=== PATIENT | male | born 1965 | race Caucasian/White ===

== ENCOUNTER 2020-03-05 20:36 | Emergency (ER) | payer BC ==
[2020-03-05 20:44] VITALS: BP 150/77; PULSE 50; RESP 16; TEMP 98.6
[2020-03-05] MEDS ORDERED: ONDANSETRON 4 MG/2 ML VIAL IVP STA (21:02)
[2020-03-05] MEDS ORDERED: KETOROLAC 30 MG/ML 1 ML VIAL IVP STA (21:02)
[2020-03-05] MEDS ORDERED: DIPH,PERTUS(ACELL)TETVAC-LF 0.5 ML VIAL IM ONE (21:02)
[2020-03-05] MEDS ORDERED: HYDROmorphone 0.5 MG/0.5 ML SYRINGE IVP STA (21:02)
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
[2020-03-05] MEDS ORDERED: HYDROmorphone 1 MG/ML 1 ML SYRINGE IVP STA (21:41)
[2020-03-05] MEDS ORDERED: KETOROLAC 30 MG/ML 1 ML VIAL IM STA (21:41)
[2020-03-05] MEDS ORDERED: HYDROmorphone 1 MG/ML 1 ML SYRINGE IM STA (21:42)
--- NOTE | 2020-03-05 21:46 | XR ---
EXAMINATION TYPE: XR shoulder complete RT DATE OF EXAM: 03/05/2020 COMPARISON: NONE HISTORY: Pain TECHNIQUE: Shoulder examined in 3 injections FINDINGS: The humeral head articulates with the glenoid. There appears to be separation of the acromioclavicular junction. The acromion has progressed proxima lly 1.6 cm from the inferior aspect of the distal clavicle. No acute fractures are evident. A follow up study can be performed 7-10 days from acute trauma for continued pain. IMPRESSION: 1. There appears to be an acromioclavicular joint separation. Correlate with location of the patient' s pain. 2. Acute fractures are not identified.
[2020-03-05] MEDS ORDERED: IBUPROFEN 600 MG STARTER PACK 4 TAB BTL PO STA (22:17)
[2020-03-05] MEDS ORDERED: ACET/COD 300 MG/30 MG STARTER PACK 6 TAB BTL PO STA (22:17)
== END 2020-03-05 22:39 | disposition home or self-care (01) ==
LOC: EC 20:36
DX: S43.101A Unspecified dislocation of right acromioclavicular joint, initial encounter (principal); Z23 Encounter for immunization; V17.4XXA Pedal cycle driver injured in collision with fixed or stationary object in traffic accident, initial encounter; Y93.55 Activity, bike riding
CPT/HCPCS: 90471; 90715; 99283